=== PATIENT | male | born 1965 | race Two or more races ===

== ENCOUNTER 2017-12-24 23:27 | Inpatient (IN) | payer MEDICAID ==
[~2017-12-24] VITALS: Ht 165.1 cm; Wt 75.7 kg
[2017-12-25] VITALS (8 sets, daily range): BP systolic 115–130; BP diastolic 65–77
[2017-12-25 00:07] LABS: Basophils # (auto) 0.1 uL; Eosinophils # (auto) 0.4 uL; Eosinophils % (auto) 4.4 % (0.0-7.0); Mean Corpuscular Hemoglobin 23.7 pg (28.0-32.0); Mean Corpuscular Volume 75.8 fL (80.0-100.0); Monocytes # (auto) 0.7 uL
[2017-12-25 00:08] LABS: Urine Bacteria NONE SEEN /hpf (None Seen); Urine Blood Negative /uL (Negative); Urine Mucus FEW (None Seen); Urine Specific Gravity 1.022 (1.001-1.035); Urine WBC 1 /hpf (0 - 3)
[2017-12-25 00:09] LABS: Basophils % (auto) 0.7 % (0.0-2.0); Hematocrit 21.5 % (41.0-53.0); Lymphocytes # (auto) 2.3 uL; Lymphocytes % (auto) 23.8 % (10.0-50.0); Mean Corpuscular Hgb Conc. 31.2 g/dL (32.0-36.0); Monocytes % (auto) 7.6 % (0.0-12.0); Neutrophils # (auto) 6.2 uL; Neutrophils % (auto) 63.5 % (37.0-80.0); Platelet Count (auto) 133 10^3/uL (140-450); Red Blood Cells 2.84 10^6/uL (4.5-5.90); White Blood Cell 9.7 10^3/uL (4.4-10.8)
[2017-12-25 00:12] LABS: Red Cell Distribution Width 22.6 % (11.8-14.3)
[2017-12-25 00:13] LABS: Hemoglobin 6.7 g/dL (13.5-17.5)
[2017-12-25 00:22] LABS: Albumin 1.9 g/dL (3.4-5.0); BUN/Creatinine Ratio 10.4; Calcium 7.3 mg/dL (8.5-10.1); Potassium 3.2 mmol/L (3.5-5.1)
[2017-12-25 00:26] LABS: Bilirubin, Total 2.5 mg/dL (0.2-1.0); Total Protein 8.1 g/dL (6.4-8.2)
[2017-12-25 01:56] LABS: INR 1.4 (0.9-1.15); Partial Thromboplastin Time 29.8 sec (23.78-33.04); Prothrombin Time 14.7 sec (9.27-12.13)
[2017-12-25] MEDS ORDERED: FUROSEMIDE 40 MG/4 ML VIAL IV ONE (03:15)
[2017-12-25] MEDS ORDERED: SPIRONOLACTONE 25 MG TAB PO ONE (03:15)
[2017-12-25] MEDS ORDERED: IBUPROFEN 600 MG TAB PO PRN (05:15)
[2017-12-25] MEDS ORDERED: LACTULOSE 20Gm/30ML SOLN PO PRN (05:15)
[2017-12-25] MEDS ORDERED: traMADol HCL 50 MG TAB PO PRN (05:15)
[2017-12-25] MEDS ORDERED: ONDANSETRON HCL 4 MG/2 ML VIAL IV PRN (05:15)
[2017-12-25] MEDS ORDERED: FUROSEMIDE 20 MG TAB PO SCH (06:00)
[2017-12-25] MEDS ORDERED: LORazepam 2MG/ML-1ML VIAL IV PRN (07:30)
[2017-12-25 08:04] LABS: Alcohol, Urine < 3.0 mg/dL (0-5); Amphetamine Screen, Urine NEGATIVE (NEGATIVE); Barbiturate Scree,Urine NEGATIVE (NEGATIVE); Benzodiazephine Screen, Urine NEGATIVE (NEGATIVE); Cannabinoid Screen, Urine NEGATIVE (NEGATIVE); Cocaine Screen, Urine NEGATIVE (NEGATIVE); Opiate Scree,Urine NEGATIVE (NEGATIVE); Phencyclidine Screen, Urine NEGATIVE (NEGATIVE)
[2017-12-25 09:15] LABS: Basophils # (auto) 0.1 uL; Eosinophils # (auto) 0.4 uL; Hematocrit 24.5 % (41.0-53.0); Hemoglobin 7.5 g/dL (13.5-17.5); Lymphocytes # (auto) 1.5 uL; Lymphocytes % (auto) 18.4 % (10.0-50.0); Mean Corpuscular Hemoglobin 23.5 pg (28.0-32.0); Mean Corpuscular Hgb Conc. 30.8 g/dL (32.0-36.0); Mean Corpuscular Volume 76.4 fL (80.0-100.0); Monocytes # (auto) 0.6 uL; Monocytes % (auto) 7.2 % (0.0-12.0); Neutrophils # (auto) 5.4 uL; Neutrophils % (auto) 68.4 % (37.0-80.0); Platelet Count (auto) 121 10^3/uL (140-450); White Blood Cell 7.9 10^3/uL (4.4-10.8)
[2017-12-25 09:16] LABS: Red Cell Distribution Width 22.3 % (11.8-14.3)
[2017-12-25 09:21] LABS: BUN/Creatinine Ratio 10.1; Calcium 7.1 mg/dL (8.5-10.1); Potassium 3.1 mmol/L (3.5-5.1)
[2017-12-25] MEDS ORDERED: SPIRONOLACTONE 25 MG TAB PO SCH (10:00)
[2017-12-25] MEDS ORDERED: ALBUMIN 25% 100 ML IV ONE (10:00)
[2017-12-25] MEDS: FUROSEMIDE 40 MG/4 ML VIAL IV SCH (10:38)
[2017-12-25] MEDS: SPIRONOLACTONE 25 MG TAB PO SCH (11:07)
[2017-12-25] MEDS ORDERED: POTASSIUM CHL 20 Meq TABLET PO ONE (15:45)
[2017-12-25] MEDS ORDERED: FUROSEMIDE 40 MG TAB PO SCH (18:00)
[2017-12-26 04:48] VITALS: BP 94/49
[2017-12-26 08:03] LABS: Basophils # (auto) 0.1 uL; Basophils % (auto) 1.4 % (0.0-2.0); Eosinophils # (auto) 0.4 uL; Hemoglobin 8.9 g/dL (13.5-17.5); Lymphocytes # (auto) 1.7 uL; Monocytes # (auto) 0.5 uL; Nucleated Red Blood Cells % 0.1 %
[2017-12-26 08:06] LABS: Eosinophils % (auto) 5.9 % (0.0-7.0); Hematocrit 27.6 % (41.0-53.0); Lymphocytes % (auto) 22.1 % (10.0-50.0); Mean Corpuscular Hgb Conc. 32.4 g/dL (32.0-36.0); Mean Corpuscular Volume 77.1 fL (80.0-100.0); Monocytes % (auto) 6.3 % (0.0-12.0); Neutrophils # (auto) 4.9 uL; Neutrophils % (auto) 64.3 % (37.0-80.0); Platelet Count (auto) 125 10^3/uL (140-450); Red Blood Cells 3.57 10^6/uL (4.5-5.90); White Blood Cell 7.6 10^3/uL (4.4-10.8)
[2017-12-26 08:11] LABS: Red Cell Distribution Width 21.5 % (11.8-14.3)
[2017-12-26 08:18] LABS: INR 1.52 (0.9-1.15); Prothrombin Time 15.9 sec (9.27-12.13)
[2017-12-26 08:22] LABS: Albumin 1.9 g/dL (3.4-5.0); BUN/Creatinine Ratio 11.3; Calcium 7.2 mg/dL (8.5-10.1); Potassium 3.5 mmol/L (3.5-5.1)
[2017-12-26 08:25] LABS: Bilirubin, Total 3.8 mg/dL (0.2-1.0); Total Protein 7.7 g/dL (6.4-8.2)
[2017-12-26 09:00] VITALS: BP 115/75
[2017-12-26] MEDS: SPIRONOLACTONE 25 MG TAB PO SCH (10:52)
[2017-12-26] MEDS: FUROSEMIDE 40 MG/4 ML VIAL IV SCH (10:52)
[2017-12-26 13:00] VITALS: BP 121/79
[2017-12-26 17:00] VITALS: BP 128/74
[2017-12-26 18:39] VITALS: BP 115/75
== END 2017-12-26 19:05 | disposition home or self-care (01) | DRG 280 ==
LOC: ER 23:30 → TELE 23:31 → TELE-WESTW 12-25 18:13
PROVIDERS: ADMIT Nurse Practitioner Family; ATTEND Internal Medicine
PROC: 30233N1 Transfusion of Nonautologous Red Blood Cells into Peripheral Vein, Percutaneous Approach (ICD-10-PCS; 2017-12-24)
PROC: 0W9G3ZZ Drainage of Peritoneal Cavity, Percutaneous Approach (ICD-10-PCS; principal; 2017-12-25)
DX: K70.31 Alcoholic cirrhosis of liver with ascites (principal); E43 Unspecified severe protein-calorie malnutrition; J90 Pleural effusion, not elsewhere classified; D68.9 Coagulation defect, unspecified; K76.6 Portal hypertension; K80.00 Calculus of gallbladder with acute cholecystitis without obstruction; D64.9 Anemia, unspecified; K42.9 Umbilical hernia without obstruction or gangrene; K57.30 Diverticulosis of large intestine without perforation or abscess without bleeding; N50.819 Testicular pain, unspecified; K40.20 Bilateral inguinal hernia, without obstruction or gangrene, not specified as recurrent; R60.1 Generalized edema; Z90.49 Acquired absence of other specified parts of digestive tract
CPT/HCPCS: 10022; 36415; 36430; 49083; 71045; 74176; 76705; 76942; 78226; 80048; 80053; 80307; 80320; 81001; 82140; 82150; 83690; 83880; 83986; 85025; 85610; 85730; 86850; 86900; 86901; 86920; 87205; 89051; 93005; 94761; 96374; P9047